=== PATIENT | female | born 1995 | race Caucasian/White ===

== ENCOUNTER 2018-04-20 08:25 | Day surgery (SDC) | payer OTHER ==
[~2018-04-20 08:25] MED LIST: ACETAMINOPHEN 1000 MG/100 ML IVPB; CEFAZOLIN 1 GM INJ; LIDOCAINE 2% (SDV) 5 ML INJ; ROCURONIUM 50 MG INJ
[2018-04-20] MEDS ORDERED: ROPIVACAINE 0.5 % 30 ML VIAL ×2 (10:02→11:56)
[2018-04-20] MEDS ORDERED: MIDAZOLAM 1 MG/ML 2 ML INJ ×2 (10:03→13:36)
[2018-04-20] MEDS ORDERED: LABETALOL HCL 20MG INJ ×2 (10:34→13:01)
[2018-04-20] MEDS ORDERED: KETOROLAC 30 MG INJ ×2 (11:16→13:37)
[2018-04-20] MEDS ORDERED: SUGAMMADEX SODIUM 200 MG/2 ML VIAL IV ×2 (11:17→13:18)
[2018-04-20] MEDS ORDERED: ROPIVACAINE 0.2% 0 ML (11:56)
[2018-04-20] MEDS ORDERED: PROPOFOL 20 ML (12:06)
[2018-04-20] MEDS: BACITRACIN/POLYMYXIN 28.35 GM OINT TOP (12:40)
[2018-04-20] MEDS: POLYMYXIN/BACITRACIN 1L IRRIG IRR (12:41)
[2018-04-20] MEDS ORDERED: hydrALAzine 20 MG INJ (12:47)
[2018-04-20] MEDS ORDERED: ONDANSETRON 4 MG INJ (12:48)
[2018-04-20] MEDS ORDERED: DEXAMETHASONE 4 MG/ML 1 ML INJ (12:48)
[2018-04-20] MEDS ORDERED: morphine 10 MG INJ (12:58)
[2018-04-20] MEDS ORDERED: HYDROmorphONE 1 MG/5 ML IV SYRINGE IV ×3 (13:47→14:00)
[2018-04-20] MEDS: KETOROLAC 30 MG INJ IV (13:56)
[2018-04-20] MEDS: HYDROmorphONE 1 MG/5 ML IV SYRINGE IV (13:59)
[2018-04-20] MEDS ORDERED: FENTAnyl 50 MCG/ML VIAL IV ×3 (14:00)
[2018-04-20] MEDS ORDERED: hydrALAzine 20 MG INJ IV (14:00)
[2018-04-20] MEDS ORDERED: ALBUTEROL 0.083% (NEB) 2.5 MG/3 ML AMP HHN (14:00)
[2018-04-20] MEDS ORDERED: LABETALOL HCL 20MG INJ IV (14:00)
[2018-04-20] MEDS ORDERED: EPHEDrine SULFATE 50 MG/5 ML SYG IV (14:00)
[2018-04-20] MEDS ORDERED: ONDANSETRON 4 MG INJ IV (14:00)
[2018-04-20] MEDS ORDERED: morphine 2 MG INJ IV (14:00)
[2018-04-20] MEDS ORDERED: MIDAZOLAM 1 MG/ML 2 ML INJ IV (14:00)
[2018-04-20] MEDS ORDERED: OXYCODONE/ACETAMINOPHEN (5/325) TAB PO ×2 (14:00)
[2018-04-20] MEDS ORDERED: DIPHENHYDRAMINE 50 MG INJ IV (14:00)
[2018-04-20] MEDS ORDERED: METOCLOPRAMIDE 10 MG INJ IV (14:00)
[2018-04-20] MEDS ORDERED: MEPERIDINE 25 MG INJ IV (14:00)
[2018-04-20] MEDS: OXYCODONE/ACETAMINOPHEN (5/325) TAB PO (16:38)
== END 2018-04-20 17:09 | disposition home or self-care (01) ==
LOC: SDS 08:25
DX: S82.61XA Displaced fracture of lateral malleolus of right fibula, initial encounter for closed fracture (principal); X58.XXXA Exposure to other specified factors, initial encounter
CPT/HCPCS: 27792; 73610-RT; 82306

== ENCOUNTER 2018-04-27 18:09 | Emergency (ER) | payer OTHER | END 2018-04-27 22:05 | disposition home or self-care (01) | LOC: FTE 18:09 | DX: M79.661 Pain in right lower leg (principal) | CPT/HCPCS: 93971; 99284-25 ==